=== PATIENT | female | born 1965 | race Caucasian/White ===

== ENCOUNTER 2019-02-05 10:06 | Emergency (ER) | payer OTHER ==
[~2019-02-05] VITALS: Ht 165.1 cm; Wt 80.7 kg
[2019-02-05 10:25] VITALS: Ht 165.1 cm; Wt 80.7 kg
[2019-02-05 13:52] VITALS: BP 118/71
== END 2019-02-05 13:52 | disposition home or self-care (01) ==
LOC: ED 10:06
DX: S16.1XXA Strain of muscle, fascia and tendon at neck level, initial encounter (principal); R07.0 Pain in throat; Z90.89 Acquired absence of other organs; X58.XXXA Exposure to other specified factors, initial encounter; Y93.89 Activity, other specified; Y92.89 Other specified places as the place of occurrence of the external cause; Y99.8 Other external cause status
CPT/HCPCS: 86308; J1885

== ENCOUNTER 2019-05-20 10:13 | Emergency (ER) | payer OTHER ==
[~2019-05-20] VITALS: Ht 165.1 cm; Wt 79.8 kg
[2019-05-20 14:14] VITALS: BP 130/75
== END 2019-05-20 14:14 | disposition home or self-care (01) ==
LOC: ED 10:13
DX: J30.9 Allergic rhinitis, unspecified (principal); J98.01 Acute bronchospasm; Z90.89 Acquired absence of other organs
CPT/HCPCS: J0171; J7512; J7613; J7644